=== PATIENT | female | born 1995 | race Asian ===

== ENCOUNTER → 2019-06-17 | Outpatient (CLI) | payer BC | LOC: LL.US 10:15 | PROVIDERS: ATTEND Physician Assistant | DX: O09.611 Supervision of young primigravida, first trimester (principal); O30.001 Twin pregnancy, unspecified number of placenta and unspecified number of amniotic sacs, first trimester; Z3A.12 12 weeks gestation of pregnancy | CPT/HCPCS: 76802 ==

== ENCOUNTER 2021-08-17 18:09 | Emergency (ER) | payer BC ==
[2021-08-17 19:29] LABS: CHLORIDE,CL 108 mmol/L (98-107); SODIUM,NA 143 mmol/L (136-145)
[2021-08-17 19:33] LABS: ANION GAP 15.2 meq/L (7-15)
[2021-08-17] MEDS ORDERED: Iopamidol 612 MG/ML 100 ML Bottle IVPUSH STA (19:58)
== END 2021-08-17 21:30 | disposition home or self-care (01) ==
LOC: LL.ED 18:09
DX: K59.00 Constipation, unspecified (principal)
CPT/HCPCS: 36415; 74177; 80053; 81003; 84703; 85025; 86140; 87210; 99283; 99284-25; Q9967

== ENCOUNTER 2023-01-17 07:05 | Emergency (ER) | payer BC ==
[2023-01-17] MEDS ORDERED: Sodium Chloride 0.9% 1,000 ML IV SCH (07:30)
[2023-01-17 07:44] LABS: BASOPHILS ABSOLUTE AUTO 0.02 K/uL (0.00-0.20); BASOPHILS PERCENT AUTO 0.3 % (0.0-2.0); EOSINOPHILS ABSOLUTE AUTO 0.24 K/uL (0.00-0.50); EOSINOPHILS PERCENT AUTO 3.1 % (0.0-5.0); HEMATOCRIT 35.9 % (34.0-46.0); HEMOGLOBIN 11.6 g/dL (11.7-15.5); LYMPHOCYTES ABSOLUTE AUTO 1.36 K/uL (0.50-3.50); LYMPHOCYTES PERCENT AUTO 17.7 % (10.0-50.0); MEAN CORPUSCULAR HEMOGLOBIN 26.9 pg (28.2-33.3); MEAN CORPUSCULAR HGB CONC 32.3 g/dL (31.7-36.0); MEAN CORPUSCULAR VOLUME 83.3 fL (84.0-98.0); MONOCYTES ABSOLUTE AUTO 0.42 K/uL (0.00-1.00); MONOCYTES PERCENT AUTO 5.5 % (2.0-14.0); NEUTROPHILS ABSOLUTE AUTO 5.63 K/uL (1.40-7.00); NEUTROPHILS PERCENT AUTO 73.4 % (45.0-80.0); PLATELET COUNT,PLT 245 K/uL (150-350); RED BLOOD CELL COUNT 4.31 M/uL (3.77-5.09); RED CELL DISTRIBUTION WIDTH 14.9 % (11.2-14.1); WHITE BLOOD CELL COUNT,WBC 7.7 K/uL (4.0-10.2)
[2023-01-17 08:18] LABS: APPEARANCE,URINE CLEAR; BILIRUBIN,URINE NEGATIVE (NEGATIVE); COLOR,URINE YELLOW; GLUCOSE,URINE NEGATIVE (NEGATIVE); KETONES,URINE NEGATIVE (NEGATIVE); LEUKOCYTE ESTERASE,URINE NEGATIVE (NEGATIVE); NITRITE,URINE NEGATIVE (NEGATIVE); OCCULT BLOOD,URINE NEGATIVE (NEGATIVE); PH,URINE 6.5 (5.0-9.0); PROTEIN,URINE NEGATIVE (NEGATIVE); UROBILINOGEN,URINE 0.2 E.U./dL (0.2-1.0)
[2023-01-17] MEDS ORDERED: Sodium Chloride 0.9% 10 ML Syringe FLUSH PRN (08:18)
[2023-01-17 08:23] LABS: ANION GAP 9.2 meq/L (7-15); BILIRUBIN TOTAL 0.3 mg/dL (0.2-1.0); CALCIUM 9.1 mg/dL (8.5-10.1); CARBON DIOXIDE,CO2 24.8 mmol/L (21.0-32.0); CREATININE 0.56 mg/dL (0.51-1.17); EST CRCL DRUG DOSING (CG) 135.78 mL/min; POTASSIUM,K 4.2 mmol/L (3.5-5.1); PROTEIN TOTAL,TP 7.7 g/dL (6.4-8.2)
[2023-01-17] MEDS: Ondansetron 4 MG Tab.DIS PO ONE (08:46)
[2023-01-17] MEDS: Ketorolac 15 MG/ML SDV IVPUSH ONE (08:46)
[2023-01-17] MEDS: Sodium Chloride 0.9% 10 ML Syringe FLUSH PRN (08:47)
[2023-01-17] MEDS: Ketorolac 10 MG Tab PO ONE (08:50)
[2023-01-17] MEDS: Sodium Chloride 0.9% 1,000 ML IV ONE (08:53)
[2023-01-17] MEDS: traMADol 50 MG Tab PO ONE (08:58)
[2023-01-17] MEDS: Lactulose Soln 10 GM/15 ML 30 ML UD Cup PO ONE ×2 (08:58→11:31)
[2023-01-17] MEDS: Iopamidol 612 MG/ML 100 ML Bottle IVPUSH STA (09:09)
[2023-01-17] MEDS: Take Home: Ondansetron 4 MG Tab.DIS, 5 Tab Pack PO ONE (11:37)
[2023-01-17] MEDS: Take Home: traMADol 50 MG, 4 Tab Pack PO ONE (11:37)
== END 2023-01-17 11:46 | disposition home or self-care (01) ==
LOC: LL.ED 07:05
DX: N94.89 Other specified conditions associated with female genital organs and menstrual cycle (principal); K59.00 Constipation, unspecified
CPT/HCPCS: 36415; 74019; 74177; 80053; 81003; 84703; 85025; 96361; 96374; 99284; 99284-25; A9270-GY; J1885; J3490; J7030; Q0162; Q9967